=== PATIENT | female | born 1930 | race Caucasian/White ===

== ENCOUNTER 2017-03-08 10:31 | Emergency (ER) | payer OTHER ==
[~2017-03-08] VITALS: Ht 157.5 cm; Wt 80.5 kg
[2017-03-08 12:09] LABS: HEMATOCRIT 41.4 % (36.0-46.0); MCH 30.9 PG (29.0-34.0); MCHC 32.9 G/DL (30.0-36.0); MCV 94.1 FL (83-99); MEAN PLAT.VOLUME 10.7 uM^3 (9.5-12.4); PLATELET COUNT 235 K/uL (156-360); RBC DIS.WIDTH-CV 13.4 % (11.8-14.6); RBC DIS.WIDTH-SD 46.3 % (39-53); WHITE BLOOD COUNT 9.5 K/uL (4.1-10.2)
[2017-03-08 12:28] LABS: CHLORIDE 108 mEq/L (99-109); POTASSIUM 4.7 mEq/L (3.7-5.4); SODIUM 143 mEq/L (136-147)
[2017-03-08 12:30] LABS: GLUCOSE 141 mg/dL (70-99)
[2017-03-08 12:31] LABS: ANION GAP 10 MEQ/L (2-14)
[2017-03-08 12:32] LABS: TROP-I INTERPRETATION NEGATIVE; TROPONIN-I < 0.01 ng/mL (0.0-0.30)
[2017-03-08 12:33] LABS: GFR ESTIMATE (CALCULATED) 45 mL/min/
[2017-03-08 12:34] LABS: UREA NITROGEN (BUN) 30 mg/dL (9-23)
[2017-03-08 17:05] VITALS: BP 134/56
== END 2017-03-08 17:15 | disposition home or self-care (01) ==
LOC: EME 10:31
DX: R00.2 Palpitations (principal); Z88.6 Allergy status to analgesic agent; Z88.5 Allergy status to narcotic agent
CPT/HCPCS: 71020; 80048; 84443; 84484; 85027; 93005; 99281; 99284